=== PATIENT | male | born 1980 | race Caucasian/White ===

== ENCOUNTER 2019-03-05 01:09 | Emergency (ER) | payer OTHER ==
[2019-03-05] MEDS ORDERED: LIDOCAINE 1% MPF 5 ML VIAL ONE (01:40)
[2019-03-05] MEDS ORDERED: TETANUS & DIPHTHERIA TOX,ADULT 0.5 ML VIAL ONE (01:41)
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
--- NOTE | 2019-03-05 10:58 | RAD REPORT ---
EXAM DESCRIPTION: RAD - Ankle Right 3 View - 03/05/2019 1:53 am CLINICAL HISTORY: PAIN Twisting injury to foot. COMPARISON: No comparisons FINDINGS: Hardware is present in the distal ankle. No acute fracture or dislocation seen.
--- NOTE | 2019-03-05 10:58 | RAD REPORT ---
EXAM DESCRIPTION: RAD - Foot Right 3 View - 03/05/2019 1:53 am CLINICAL HISTORY: PAIN Twisting injury to foot and ankle. COMPARISON: No comparisons FINDINGS: No acute fracture or dislocation seen.
== END 2019-03-05 03:17 | disposition home or self-care (01) ==
LOC: ER 01:09
PROC: 0JQ10ZZ Repair Face Subcutaneous Tissue and Fascia, Open Approach (ICD-10-PCS; principal; 2019-03-05)
DX: S01.81XA Laceration without foreign body of other part of head, initial encounter (principal); S09.90XA Unspecified injury of head, initial encounter; S80.811A Abrasion, right lower leg, initial encounter; W01.0XXA Fall on same level from slipping, tripping and stumbling without subsequent striking against object, initial encounter; Y93.01 Activity, walking, marching and hiking; Y92.143 Cell of prison as the place of occurrence of the external cause; Z23 Encounter for immunization
CPT/HCPCS: 90471; 90714; 99284